=== PATIENT | female | born 1940 | race Caucasian/White ===

== ENCOUNTER 2020-12-11 15:20 | Outpatient (CLI) | payer MEDICARE, OTHER, SELFPAY ==
[2020-12-11 15:58] LABS: D Dimer 2.45 ug/mIFEU (0-0.59)
== END 2020-12-11 15:21 | disposition home or self-care (01) ==
PROVIDERS: Visit Provider Student in an Organized Health Care Education/Training Program
DX: U07.1 COVID-19 (principal)
CPT/HCPCS: 85378